=== PATIENT | female | born 1960 | race American Indian/Alaskan Native ===

== ENCOUNTER 2020-09-17 10:35 | Observation (INO) | payer MEDICAID ==
[2020-09-17] MEDS ORDERED: ASPIRIN 325 MG TAB ONE (10:42)
[2020-09-17] MEDS ORDERED: ASPIRIN 325 MG TAB PO ONE (10:47)
--- NOTE | 2020-09-17 11:57 | XRay Report ---
CHEST 2 VIEWS 1101 INDICATION / CLINICAL INFORMATION: CP/SOB COMPARISON: None available. FINDINGS: SUPPORT DEVICES: None. HEART / MEDIASTINUM: Mild cardiomegaly LUNGS / PLEURA: Pulmonary vascularity appears within normal limits. No definite pleural effusions are seen. Diffuse bilateral moderately prominent increased interstitial markings are seen. These are not ed throughout both lung mora though are most noticeable in the right base and particularly the righ t middle lobe. Probably these markings are predominantly chronic based on appearance though certainly could include interstitial edema/infiltrate and I am concerned there could be superimposed focal pne umonitis in the right middle lobe though without dense consolidation. No pneumothorax. ADDITIONAL FINDINGS: No significant additional findings. IMPRESSION: Diffuse interstitial markings as above, more concentrated in the right middle lobe as dis cussed. Chronicity is unclear but acute pneumonitis as well as mild edema are possible. In the absenc e of prior studies for comparison, follow-up is suggested as is clinical correlation. Signer Name: Poli Enciso MD Signed: 09/17/2020 11:53 AM Workstation Name: [id number]
[2020-09-17 13:09] LABS: Basophils % (Auto) 0.6 % (0.0-1.8); Eosinophils # (Auto) 0.1 K/mm3 (0.0-0.4); Eosinophils % (Auto) 1.8 % (0.0-4.3); Hematocrit 41.2 % (30.3-42.9); Lymphocytes # (Auto) 2.3 K/mm3 (1.2-5.4); Lymphocytes % (Auto) 39.4 % (13.4-35.0); Mean Corpuscular HGB Conc 34 % (30-34); Mean Corpuscular Volume 96 fl (79-97); Monocytes # (Auto) 0.5 K/mm3 (0.0-0.8); Monocytes % (Auto) 8.2 % (0.0-7.3); Platelet Count 267 K/mm3 (140-440); Red Blood Count 4.29 M/mm3 (3.65-5.03); Red Cell Distribution Width 13.1 % (13.2-15.2)
[2020-09-17] MEDS ORDERED: methylPREDNISolone Sod Succinate 125 MG/2 ML INJ IV ONE (13:23)
[2020-09-17] MEDS ORDERED: IPRATROPIUM/ALBUTEROL SULFATE 3 ML AMPUL.NEB IH ONE (13:23)
[2020-09-17 13:42] LABS: Alanine Aminotransferase 18 units/L (7-56); Albumin 3.9 g/dL (3.9-5); BUN/Creatinine Ratio 14; Blood Urea Nitrogen 14 mg/dL (7-17); Calcium 8.7 mg/dL (8.4-10.2); Hemolysis Index 24
[2020-09-17 13:50] LABS: INR 0.95 (0.87-1.13)
--- NOTE | 2020-09-17 13:56 | Emergency Department Report ---
ED Chest Pain HPI - General Chief Complaint: Chest Pain Stated Complaint: CHEST PAIN/ SHORTNESS OF BREATH Time Seen by Provider: 09/17/20 12:45 Source: patient Mode of arrival: Wheelchair Limitations: No Limitations - History of Present Illness Initial Comments: This is a 60-year-old female presents to the emergency department with a complaint of a 1 day history of some generalized chest discomfort and shortness of breath. It is associated with some wheezing and a mixed dry and productive cough. The patient's chest discomfort increases with her respirations. She denies any lower extremity swelling, fever, back pain, abdominal pain. She has a past medical history of COPD for which she is supposed to be on home O2 but does not have the equipment. She has a history of CHF. 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 No recent travel or sick contacts at home. She is a tobacco smoker but denies any illicit drug use. - Related Data Previous Rx's Medication Instructions Recorded Last Taken Type ALBUTEROL NEB's [Proventil 0.083% 2.5 mg IH Q4HRT PRN #30 nebu 09/18/20 Unknown Rx NEBS] Albuterol Mdi (or & Nicu Only) 2 puff IH QID PRN #8.5 gram 09/18/20 Unknown Rx [ProAir HFA Inhaler] Aspirin EC [Halfprin EC] 81 mg PO QDAY #30 tablet. 09/18/20 Unknown Rx Folic Acid [Folvite] 1 mg PO QDAY #30 tablet 09/18/20 Unknown Rx Pravastatin Sodium [Pravastatin] 10 mg PO QHS #30 tablet 09/18/20 Unknown Rx carvediloL [Coreg] 6.25 mg PO BID #60 tablet 09/18/20 Unknown Rx levoFLOXacin [Levaquin TAB] 750 mg PO Q24HR #5 tablet 09/18/20 Unknown Rx lisinopriL [Zestril TAB] 2.5 mg PO QDAY #30 tablet 09/18/20 Unknown Rx Allergies Allergy/AdvReac Type Severity Reaction Status Date / Time No Known Allergies Allergy Unverified 09/17/20 10:37 Heart Score - HEART Score History: Slightly suspicious EKG: Non-specific Age: 45-65 Risk factors: 1-2 risk factors Troponin: < normal limit HEART Score: 3 - EKG Read Time Time EKG Completed: 10:44 EKG Read Time: 10:45 ED Review of Systems ROS: Stated complaint: CHEST PAIN/ SHORTNESS OF BREATH Other details as noted in HPI Comment: All other systems reviewed and negative Constitutional: denies: chills, fever Eyes: denies: eye pain, vision change ENT: denies: ear pain, throat pain Respiratory: cough, shortness of breath, wheezing Cardiovascular: chest pain. denies: edema Gastrointestinal: denies: abdominal pain, vomiting Genitourinary: denies: dysuria, discharge Musculoskeletal: denies: back pain, arthralgia Skin: denies: rash, lesions Neurological: denies: headache, weakness ED Past Medical Hx - Past Medical History Hx Congestive Heart Failure: Yes Hx COPD: Yes Additional medical history: RAPID HEART BEAT/ EMPHYSEMA - Surgical History Additional Surgical History: RIGHT BREST/ C SECTION - Social History Smoking Status: Current Some Day Smoker Substance Use Type: Alcohol - Medications Home Medications: Home Medications Medication Instructions Recorded Confirmed Last Taken Type ALBUTEROL NEB's [Proventil 0.083% 2.5 mg IH Q4HRT PRN #30 nebu 09/18/20 Unknown Rx NEBS] Albuterol Mdi (or & Nicu Only) 2 puff IH QID PRN #8.5 gram 09/18/20 Unknown Rx [ProAir HFA Inhaler] Aspirin EC [Halfprin EC] 81 mg PO QDAY #30 tablet. 09/18/20 Unknown Rx Folic Acid [Folvite] 1 mg PO QDAY #30 tablet 09/18/20 Unknown Rx Pravastatin Sodium [Pravastatin] 10 mg PO QHS #30 tablet 09/18/20 Unknown Rx carvediloL [Coreg] 6.25 mg PO BID #60 tablet 09/18/20 Unknown Rx levoFLOXacin [Levaquin TAB] 750 mg PO Q24HR #5 tablet 09/18/20 Unknown Rx lisinopriL [Zestril TAB] 2.5 mg PO QDAY #30 tablet 09/18/20 Unknown Rx ED Physical Exam - General Limitations: No Limitations - Other Other exam information: GENERAL: The patient is well-developed well-nourished. HENT: Normocephalic. Atraumatic. Patient has moist mucous membranes. EYES: Extraocular motions are intact. NECK: Supple. Trachea is midline. CHEST/LUNGS: Coarse breath sounds throughout the chest. A productive sounding cough is heard. Tachypnea but no accessory muscle use. Chest pain is not reproducible to palpation of the chest wall, no crepitus or deformity. HEART/CARDIOVASCULAR: Regular. There is no tachycardia. There is no murmur. ABDOMEN: Abdomen is soft, nontender. Patient has normal bowel sounds. There is no abdominal distention. SKIN: Skin is warm and dry. NEURO: The patient is awake, alert, and oriented. The patient is cooperative. The patient has no focal neurologic deficits. Normal speech. MUSCULOSKELETAL: There is no tenderness or deformity. There is no limitation range of motion. ED Course Vital Signs 09/17/20 09/17/20 09/17/20 10:49 12:57 13:00 Temperature 98.1 F Pulse Rate 86 82 Respiratory 20 16 Rate Blood Pressure 136/63 136/77 O2 Sat by Pulse 95 98 97 Oximetry 09/17/20 09/17/20 09/17/20 13:16 13:30 13:46 Temperature Pulse Rate 100 H 82 82 Respiratory 16 16 13 Rate Blood Pressure 129/72 108/62 131/79 O2 Sat by Pulse 95 97 97 Oximetry 09/17/20 09/17/20 09/17/20 14:00 14:16 14:30 Temperature Pulse Rate 89 102 H 89 Respiratory 14 18 16 Rate Blood Pressure 128/80 126/82 124/81 O2 Sat by Pulse 100 98 97 Oximetry 09/17/20 09/17/20 09/17/20 14:46 15:00 15:16 Temperature Pulse Rate 94 H 96 H 65 Respiratory 18 14 19 Rate Blood Pressure 127/84 135/92 139/92 O2 Sat by Pulse 97 98 95 Oximetry 09/17/20 09/17/20 09/17/20 15:30 16:18 16:30 Temperature Pulse Rate 101 H 105 H Respiratory 24 18 Rate Blood Pressure 135/92 135/92 135/92 O2 Sat by Pulse 96 97 98 Oximetry 09/17/20 09/17/20 09/17/20 16:46 18:35 18:46 Temperature Pulse Rate 105 H 94 H Respiratory 18 21 17 Rate Blood Pressure 140/94 138/89 131/82 O2 Sat by Pulse 94 99 98 Oximetry 09/17/20 09/17/20 09/17/20 19:00 19:16 19:30 Temperature Pulse Rate 85 89 80 Respiratory 16 14 16 Rate Blood Pressure 145/80 142/78 137/83 O2 Sat by Pulse 98 97 99 Oximetry 09/17/20 09/17/20 09/17/20 19:45 19:46 20:00 Temperature Pulse Rate 105 H 105 H Respiratory 20 21 20 Rate Blood Pressure 152/90 152/90 O2 Sat by Pulse 97 98 86 Oximetry 09/17/20 09/17/20 09/17/20 20:16 20:30 20:46 Temperature Pulse Rate 102 H 100 H 105 H Respiratory 18 16 23 Rate Blood Pressure 164/92 169/117 169/97 O2 Sat by Pulse 98 97 98 Oximetry 09/17/20 09/17/20 21:00 21:16 Temperature Pulse Rate 107 H 78 Respiratory 17 25 H Rate Blood Pressure 152/89 147/95 O2 Sat by Pulse 96 99 Oximetry CHARLES score - Charles Score Age > 65: (0) No Aspirin use within the Past 7 Days: (0) No 3 or more CAD Risk Factors: (0) No 2 or more Angina events in past 24 hrs: (1) Yes Known CAD with more than 50% Stenosis: (0) No Elevated Cardiac Markers: (0) No ST Deviation Greater than 0.5mm: (0) No CHARLES Score: 1 ED Medical Decision Making - Lab Data Result diagrams: 09/17/20 12:33 09/18/20 07:59 Lab Results 09/17/20 09/17/20 09/17/20 Range/Units 12:33 12:33 13:00 WBC 5.9 (4.5-11.0) K/mm3 RBC 4.29 (3.65-5.03) M/mm3 Hgb 14.0 (10.1-14.3) gm/dl Hct 41.2 (30.3-42.9) % MCV 96 (79-97) fl MCH 33 H (28-32) pg MCHC 34 (30-34) % RDW 13.1 L (13.2-15.2) % Plt Count 267 (140-440) K/mm3 Lymph % (Auto) 39.4 H (13.4-35.0) % Whiteside % (Auto) 8.2 H (0.0-7.3) % Eos % (Auto) 1.8 (0.0-4.3) % Baso % (Auto) 0.6 (0.0-1.8) % Lymph # (Auto) 2.3 (1.2-5.4) K/mm3 Whiteside # (Auto) 0.5 (0.0-0.8) K/mm3 Eos # (Auto) 0.1 (0.0-0.4) K/mm3 Baso # (Auto) 0.0 (0.0-0.1) K/mm3 Seg Neutrophils % 50.0 (40.0-70.0) % Seg Neutrophils # 2.9 (1.8-7.7) K/mm3 PT (12.2-14.9) Sec. INR (0.87-1.13) D-Dimer (0-234) ng/mlDDU Sodium 139 (137-145) mmol/L Potassium 3.8 (3.6-5.0) mmol/L Chloride 102.1 (98-107) mmol/L Carbon Dioxide 26 (22-30) mmol/L Anion Gap 15 mmol/L BUN 14 (7-17) mg/dL Creatinine 1.0 (0.6-1.2) mg/dL Estimated GFR 57 ml/min BUN/Creatinine Ratio 14 % Glucose 90 (65-100) mg/dL Calcium 8.7 (8.4-10.2) mg/dL Total Bilirubin 0.30 (0.1-1.2) mg/dL AST 24 (5-40) units/L ALT 18 (7-56) units/L Alkaline Phosphatase 77 (35-129) units/L Troponin T < 0.010 < 0.010 (0.00-0.029) ng/mL NT-Pro-B Natriuret Pep (0-900) pg/mL Total Protein 6.9 (6.3-8.2) g/dL Albumin 3.9 (3.9-5) g/dL Albumin/Globulin Ratio 1.3 % 09/17/20 09/17/20 09/17/20 Range/Units 13:00 13:00 13:00 WBC (4.5-11.0) K/mm3 RBC (3.65-5.03) M/mm3 Hgb (10.1-14.3) gm/dl Hct (30.3-42.9) % MCV (79-97) fl MCH (28-32) pg MCHC (30-34) % RDW (13.2-15.2) % Plt Count (140-440) K/mm3 Lymph % (Auto) (13.4-35.0) % Whiteside % (Auto) (0.0-7.3) % Eos % (Auto) (0.0-4.3) % Baso % (Auto) (0.0-1.8) % Lymph # (Auto) (1.2-5.4) K/mm3 Whiteside # (Auto) (0.0-0.8) K/mm3 Eos # (Auto) (0.0-0.4) K/mm3 Baso # (Auto) (0.0-0.1) K/mm3 Seg Neutrophils % (40.0-70.0) % Seg Neutrophils # (1.8-7.7) K/mm3 PT 13.3 (12.2-14.9) Sec. INR 0.95 (0.87-1.13) D-Dimer 256.97 H (0-234) ng/mlDDU Sodium (137-145) mmol/L Potassium (3.6-5.0) mmol/L Chloride (98-107) mmol/L Carbon Dioxide (22-30) mmol/L Anion Gap mmol/L BUN (7-17) mg/dL Creatinine (0.6-1.2) mg/dL Estimated GFR ml/min BUN/Creatinine Ratio % Glucose (65-100) mg/dL Calcium (8.4-10.2) mg/dL Total Bilirubin (0.1-1.2) mg/dL AST (5-40) units/L ALT (7-56) units/L Alkaline Phosphatase (35-129) units/L Troponin T (0.00-0.029) ng/mL NT-Pro-B Natriuret Pep 3162 H (0-900) pg/mL Total Protein (6.3-8.2) g/dL Albumin (3.9-5) g/dL Albumin/Globulin Ratio % 09/17/20 Range/Units 16:40 WBC (4.5-11.0) K/mm3 RBC (3.65-5.03) M/mm3 Hgb (10.1-14.3) gm/dl Hct (30.3-42.9) % MCV (79-97) fl MCH (28-32) pg MCHC (30-34) % RDW (13.2-15.2) % Plt Count (140-440) K/mm3 Lymph % (Auto) (13.4-35.0) % Whiteside % (Auto) (0.0-7.3) % Eos % (Auto) (0.0-4.3) % Baso % (Auto) (0.0-1.8) % Lymph # (Auto) (1.2-5.4) K/mm3 Whiteside # (Auto) (0.0-0.8) K/mm3 Eos # (Auto) (0.0-0.4) K/mm3 Baso # (Auto) (0.0-0.1) K/mm3 Seg Neutrophils % (40.0-70.0) % Seg Neutrophils # (1.8-7.7) K/mm3 PT (12.2-14.9) Sec. INR (0.87-1.13) D-Dimer (0-234) ng/mlDDU Sodium (137-145) mmol/L Potassium (3.6-5.0) mmol/L Chloride (98-107) mmol/L Carbon Dioxide (22-30) mmol/L Anion Gap mmol/L BUN (7-17) mg/dL Creatinine (0.6-1.2) mg/dL Estimated GFR ml/min BUN/Creatinine Ratio % Glucose (65-100) mg/dL Calcium (8.4-10.2) mg/dL Total Bilirubin (0.1-1.2) mg/dL AST (5-40) units/L ALT (7-56) units/L Alkaline Phosphatase (35-129) units/L Troponin T < 0.010 (0.00-0.029) ng/mL NT-Pro-B Natriuret Pep (0-900) pg/mL Total Protein (6.3-8.2) g/dL Albumin (3.9-5) g/dL Albumin/Globulin Ratio % - EKG Data -: EKG Interpreted by Ne EKG shows normal: sinus rhythm, axis, intervals, QRS complexes (LVH), ST-T waves (Nonspecific ST T waves) Rate: normal - EKG Data When compared to previous EKG there are: previous EKG unavailable Interpretation: other (Sinus rhythm, normal axis, normal intervals, LVH, nonspecific ST T waves. No ST elevation SD.) - Radiology Data Radiology results: report reviewed CHEST 2 VIEWS 1101 INDICATION / CLINICAL INFORMATION: CP/SOB COMPARISON: None available. FINDINGS: SUPPORT DEVICES: None. HEART / MEDIASTINUM: Mild cardiomegaly LUNGS / PLEURA: Pulmonary vascularity appears within normal limits. No definite pleural effusions are seen. Diffuse bilateral moderately prominent increased interstitial markings are seen. These are noted throughout both lung mora though are most noticeable in the right base and particularly the right middle lobe. Probably these markings are predominantly chronic based on appearance though certainly could include interstitial edema/infiltrate and I am concerned there could be superimposed focal pneumonitis in the right middle lobe though without dense consolidation. No pneumothorax. ADDITIONAL FINDINGS: No significant additional findings. IMPRESSION: Diffuse interstitial markings as above, more concentrated in the right middle lobe as discussed. Chronicity is unclear but acute pneumonitis as well as mild edema are possible. In the absence of prior studies for comparison, follow-up is suggested as is clinical correlation. CTA CHEST WITH CONTRAST INDICATION / CLINICAL INFORMATION: CP, SOB, Elevated dimer 100 ml omni 350. TECHNIQUE: Axial CT images were obtained through the chest after injection of 100 cc of Omnipaque 350 IV contrast. 3 plane MIP and/or 3D reconstructions were produced. All CT scans at this location are performed using CT dose reduction for ALARA by means of automated exposure control. COM PARISON: None available. FINDINGS: PULMONARY ARTERIES: No pulmonary emboli. THORACIC AORTA: Mild atherosclerotic calcification without acute abnormality. HEART: Mildly enlarged CORONARY ARTERY CALCIFICATION: None. MEDIASTINUM / STACI: No significant abnormality. PLEURA: There is a small right pleural effusion No pneumothorax. LUNGS: There are scattered bullous disease. There is thickening of interlobular septa. There is peripheral interstitial disease bilaterally. There are some very small nodules in the periphery of the upper lobes measuring up to 4 mm. ADDITIONAL FINDINGS: None. UPPER ABDOMEN: There are small hypodensities in the liver characteristic of cysts. SKELETAL STRUCTURES: No significant osseous abnormality. IMPRESSION: 1. No CT evidence for pulmonary embolism. 2. There are bilateral interstitial opacities may be chronic or may represent edema. The possibility of an interstitial pneumonitis as well as infectious process is considered in the differential. There are multiple very small nodular densities in the periphery of the lungs measuring up to 4 mm. - Medical Decision Making This patient presents to the emergency department with complaint of some generalized chest pain that worsens with deep respirations. She has both wheezing and coarse breath sounds heard. There is some mild tachypnea but no accessory muscle use. EKG does not have any morphology consistent with ST elevation myocardial infarction. Chest x-ray shows some interstitial markings that appear, to me, to be consistent with some interstitial edema. No widened mediastinum. No obvious pneumonia. Patient was given breathing treatments, Solu-Medrol, Lasix. Patient's labs were concerning for an elevated proBNP of about 3000, and a slightly elevated and equivocal D-dimer level. The patient had a CT angiography of the chest that once again showed these interstitial markings that could be edema versus some pneumonitis. Patient continues to have the symptoms despite the aforementioned treatment. She has a heart score of 3. Patient will be admitted to the hospital for further evaluation and treatment was accepted for admission by the hospitalist, Dr. Dobbs. Critical Care Time: No Critical care attestation.: If time is entered above; I have spent that time in minutes in the direct care of this critically ill patient, excluding procedure time. ED Disposition Clinical Impression: Acute chest pain, Tobacco use disorder CHF exacerbation Qualifiers: Heart failure type: systolic Qualified Code(s): I50.23 - Acute on chronic systolic (congestive) heart failure COPD (chronic obstructive pulmonary disease) Qualifiers: COPD type: chronic bronchitis Chronic bronchitis type: unspecified Qualified Code(s): J42 - Unspecified chronic bronchitis Disposition: OP ADMIT IP TO THIS HOSP Is pt being admited?: Yes Condition: Fair Time of Disposition: 16:58
--- NOTE | 2020-09-17 16:36 | Cat Scan Report ---
CTA CHEST WITH CONTRAST INDICATION / CLINICAL INFORMATION: CP, SOB, Elevated dimer 100 ml omni 350. TECHNIQUE: Axial CT images were obtained through the chest after injection of 100 cc of Omnipaque 350 IV contrast. 3 plane MIP and/or 3D reconstructions were produced. All CT scans at this location are performed using CT dose reduction for ALARA by means of automated exposure control. COMPARISON: None available. FINDINGS: PULMONARY ARTERIES: No pulmonary emboli. THORACIC AORTA: Mild atherosclerotic calcification without acute abnormality. HEART: Mildly enlarged CORONARY ARTERY CALCIFICATION: None. MEDIASTINUM / STACI: No significant abnormality. PLEURA: There is a small right pleural effusion No pneumothorax. LUNGS: There are scattered bullous disease. There is thickening of interlobular septa. There is perip heral interstitial disease bilaterally. There are some very small nodules in the periphery of the upp er lobes measuring up to 4 mm. ADDITIONAL FINDINGS: None. UPPER ABDOMEN: There are small hypodensities in the liver characteristic of cysts. SKELETAL STRUCTURES: No significant osseous abnormality. IMPRESSION: 1. No CT evidence for pulmonary embolism. 2. There are bilateral interstitial opacities may be chronic or may represent edema. The possibility of an interstitial pneumonitis as well as infectious process is considered in the differential. There are multiple very small nodular densities in the periphery of the lungs measuring up to 4 mm. Multiple incidental pulmonary nodule(s) in the upper lobes measuring 4 mm with solid characteristics. Recommendation according to Fleischner Society 2017 Guidelines: Low Risk Patient: No routine follow- up; High Risk Patient: Optional CT at 12 months. Signer Name: Pio Cedillo MD Signed: 09/17/2020 4:32 PM Workstation Name: [id number]
[2020-09-17] MEDS ORDERED: FUROSEMIDE 20 MG/2 ML INJ IV ONE (16:38)
--- NOTE | 2020-09-17 16:51 | History and Physical Report ---
History of Present Illness Chief complaint: I cant breathe History of present illness: 60 YO Female with Nicotine Dependence, CHF, Medication Noncompliance, COPD, ETOH Dependence, Chronic Respiratory Failure noncompliant with home oxygen presents to ED for evaluation. Patient reports "I cannot breathe". Patient states that she has experienced breath, chest discomfort, orthopnea, paroxysmal nocturnal dyspnea, decreased exercise tolerance, dyspnea on exertion, and dyspnea at rest, chest discomfort over the past 1 week with worsening symptoms over the past 1 day. Patient transported to [facility] via private vehicle for further care and evaluation of the aforementioned symptoms. The patient was seen and evaluated in the emergency department. All lab and imaging studies reviewed. Patient with chest x-ray and found to have pulmonary vascular congestion as well as clinical symptoms consistent with CHF decompensation. Patient placed in observation status and admitted to telemetry and initiated on CHF protocol. Patient denies fever, chills, chest pain, palpitation, productive cough, skin rash, recent ill contacts, known exposure to COVID-19. No prior admission for review. All medication listed at time of admission has been reconciled. Cardiology team consulted in ED. Past History Past Medical History: heart failure, hypertension, other (See HPI) Past Surgical History: , Other (Right breast surgery) Social history: single, smoking. denies: alcohol abuse, prescription drug abuse Family history: diabetes, hypertension Medications and Allergies Allergies Allergy/AdvReac Type Severity Reaction Status Date / Time No Known Allergies Allergy Unverified 09/17/20 10:37 Review of Systems Constitutional: no weight loss, no weight gain, no fever, no chills Ears, nose, mouth and throat: no ear pain, no ear discharge, no tinnitis, no nose pain, no nasal congestion, no nasal discharge Breasts: no change in shape, no swelling, no mass Cardiovascular: orthopnea, edema, shortness of breath, dyspnea on exertion, paro xysmal nocturnal dyspnea, leg edema, decreased exercise tolerance, no chest pain, no palpitations, no rapid/irregular heart beat Respiratory: no cough, no cough with sputum, no hemoptysis Gastrointestinal: no abdominal pain, no nausea, no vomiting, no diarrhea Genitourinary Female: no pelvic pain, no flank pain, no dysuria, no urinary frequency, no urgency Rectal: no pain, no incontinence, no bleeding Musculoskeletal: no neck stiffness, no neck pain, no shooting arm pain, no arm numbness/tingling, no low back pain Integumentary: no rash, no pruritis, no redness, no sores, no wounds Neurological: no transient paralysis, no paralysis, no weakness, no parathesias, no numbness, no tingling, no seizures Psychiatric: no anxiety, no memory loss, no change in sleep habits, no sleep disturbances, no insomnia, no hypersomnia, no change in appetite, no change in libido Endocrine: no cold intolerance, no heat intolerance, no polyphagia, no polydipsia, no polyuria, no nocturia, no excessive sweating Hematologic/Lymphatic: no easy bruising, no easy bleeding, no lymphadenopathy Exam - Constitutional Vitals: Temp Pulse Resp BP Pulse Ox 98.1 F 82 13 131/79 97 09/17/20 10:49 09/17/20 13:46 09/17/20 13:46 09/17/20 13:46 09/17/20 13:46 General appearance: Present: mild distress - EENT Eyes: Present: PERRL ENT: hearing intact, clear oral mucosa - Neck Neck: Present: supple, normal ROM - Respiratory Respiratory effort: normal Respiratory: bilateral: diminished, rales - Cardiovascular Heart Sounds: Present: S1 & S2. Absent: rub, click - Extremities Extremities: pulses symmetrical Extremity abnormal: edema Peripheral Pulses: within normal limits - Abdominal General gastrointestinal: Present: soft, non-tender, non-distended, normal bowel sounds Female genitourinary: Present: normal - Integumentary Integumentary: Present: clear, warm, dry - Musculoskeletal Musculoskeletal: gait normal, strength equal bilaterally - Psychiatric Psychiatric: appropriate mood/affect, intact judgment & insight - Neurologic Neurologic: CNII-XII intact, moves all extremities HEART Score - HEART Score EKG: Non-specific Age: 45-65 Risk factors: 1-2 risk factors Troponin: Troponin T < 0.010 ng/mL (0.00-0.029) 09/17/20 13:00 Troponin: < normal limit Results - Labs CBC & Chem 7: 09/17/20 12:33 09/17/20 12:33 Labs: Abnormal lab results 09/17/20 09/17/20 09/17/20 Range/Units 12:33 13:00 13:00 MCH 33 H (28-32) pg RDW 13.1 L (13.2-15.2) % Lymph % (Auto) 39.4 H (13.4-35.0) % [place] % (Auto) 8.2 H (0.0-7.3) % D-Dimer 256.97 H (0-234) ng/mlDDU NT-Pro-B Natriuret Pep 3162 H (0-900) pg/mL Assessment and Plan - Patient Problems (1) CHF exacerbation Current Visit: Yes Status: Acute Qualifiers: Heart failure type: systolic Qualified Code(s): I50.23 - Acute on chronic systolic (congestive) heart failure Plan to address problem: CHF protocol: Strict I/O, monitor urine output every shift, daily weight, aft erload reduction, blood pressure control, echocardiogram ordered and pending at time of admission, cardiology team consulted. (2) Chronic respiratory failure Current Visit: Yes Status: Acute Plan to address problem: Patient noncompliant with home oxygen. Home oxygen evaluation, supportive care. (3) Nicotine dependence Current Visit: Yes Status: Acute Qualifiers: Nicotine product type: cigarettes Substance use status: in withdrawal Qualified Code(s): F17.213 - Nicotine dependence, cigarettes, with withdrawal Plan to address problem: smoking cessation counseling, supportive care, behavior change counseling, +15 minutes (4) Noncompliance Current Visit: Yes Status: Acute Plan to address problem: Patient counseled regarding medication noncompliance as well as noncompliance with home oxygen. Patient knowledges understanding instructions and acknowledges that she will attempt to be more compliant in the future (5) Alcohol dependence Current Visit: Yes Status: Acute Plan to address problem: Thiamine, folic acid, multivitamin daily, [facility] protocol. (6) COPD (chronic obstructive pulmonary disease) Current Visit: Yes Status: Acute Qualifiers: COPD type: chronic bronchitis Plan to address problem: Supplemental oxygen, pulse oximetry, nebulizer therapy, supportive care. (7) DVT prophylaxis Current Visit: Yes Status: Acute Plan to address problem: SCD to bilateral lower extremities while in bed, patient is ambulatory.
[2020-09-17] MEDS ORDERED: oxyCODONE /ACETAMINOPHEN 5-325MG TAB PO PRN (16:52)
[2020-09-17] MEDS ORDERED: HYDROmorphone 1 MG/1 ML INJ IV PRN (16:52)
[2020-09-17] MEDS ORDERED: ACETAMINOPHEN 325 MG TAB PO PRN (16:52)
[2020-09-17] MEDS ORDERED: ONDANSETRON 4 MG/2 ML INJ IV PRN (16:52)
[2020-09-17] MEDS: FUROSEMIDE 20 MG/2 ML INJ IV SCH (17:37)
[2020-09-17] MEDS ORDERED: LORazepam 2 MG/ML VIAL IV PRN (17:43)
[2020-09-17] MEDS ORDERED: THIAMINE 100 MG TAB PO ONE (17:56)
[2020-09-18] MEDS: ALBUTEROL 2.5 MG/3 ML NEBU IH PRN ×2 (05:28→14:15)
[2020-09-18] MEDS: FUROSEMIDE 20 MG/2 ML INJ IV SCH (07:09)
[2020-09-18 09:55] LABS: BUN/Creatinine Ratio 21; Blood Urea Nitrogen 17 mg/dL (7-17); Calcium 9.7 mg/dL (8.4-10.2); Hemolysis Index 0
[2020-09-18] MEDS ORDERED: FOLIC ACID 1 MG TAB PO SCH (10:00)
[2020-09-18] MEDS ORDERED: MULTIVITAMINS ,THERAPEUTIC TAB PO SCH (10:00)
--- NOTE | 2020-09-18 10:35 | Electrocardiograph Report ---
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
--- NOTE | 2020-09-18 12:10 | Consultation ---
History of Present Illness Consult date: 09/18/20 Requesting physician: ERNIE THRASHER Consult reason: congestive heart failure History of present illness: This patient is a 60-year-old female with a significant history of cardiomyopathy, heart failure reduced ejection fraction, palpitations, hypertension, hyperlipidemia, COPD emphysema, tobacco use, heart murmur. She is previously unknown to our practice and has been followed by cardiology through [facility]. Patient presents to [facility] ER with chief complaint of shortness of breath, chest pain x3 days. Patient normally has no limitations on ADLs but over the last 3 days is having significant exertional dyspnea. Patient has previously been prescribed LifeVest approximately 5 years ago which she wore for 1 year before discontinuing AGAINST MEDICAL ADVICE. Patient has not followed up with recommended electrophysiology to discuss ICD. She had cardiac stress test 3 years prior which she reports as normal. She is on home medications Coreg, flecainide, lisinopril and until recently hydrochlorothiazide which was discontinued due to hypokalemia. Tobacco use is reported with his 2 packs/day x 40 years for estimated 80 pack years, EtOH 2 drinks per night, no recreational drugs. At time of interview patient is having mild chest discomfort 3 out of 10 achy with mild shortness of breath. She denies any weakness, dizziness, abdominal pain, N/V/D, recent illness or known exposures. Patient denies any previous history of coronary artery disease, CVA, DVT, PE. In the past she has been on home O2 for COPD but has been discontinued for several years due to economic barriers. Patient also states she has recently [place] to this area and would like to be reestablished with cardiology. Past History Past Medical History: heart failure, hypertension, other (See HPI) Past Surgical History: , Other (Right breast surgery) Social history: single, smoking. denies: alcohol abuse, prescription drug abuse Family history: diabetes, hypertension Medications and Allergies Allergies Allergy/AdvReac Type Severity Reaction Status Date / Time No Known Allergies Allergy Unverified 09/17/20 10:37 Active Meds: Active Medications Acetaminophen (Acetaminophen 325 Mg Tab) 650 mg PO Q4H PRN PRN Reason: Pain MILD(1-3)/Fever >100.5/DUFFY Albuterol (Albuterol 2.5 Mg/3 Ml Nebu) 2.5 mg IH Q4HRT PRN PRN Reason: Shortness Of Breath Last Admin: 09/18/20 05:28 Dose: 2.5 mg Documented by: Folic Acid (Folic Acid 1 Mg Tab) 1 mg PO QDAY [facility] Last Admin: 09/18/20 09:58 Dose: 1 mg Documented by: Furosemide (Furosemide 20 Mg/2 Ml Inj) 20 mg IV BID@0600,1800 [facility] Last Admin: 09/18/20 07:09 Dose: 20 mg Documented by: Hydromorphone HCl (Hydromorphone 1 Mg/1 Ml Inj) 0.5 mg IV Q12H PRN PRN Reason: Pain , Severe (7-10) Lorazepam (Lorazepam 2 Mg/Ml Vial) 2 mg IV Q1HR PRN PRN Reason: CIWA-Ar 8-15 Multivitamins (Multivitamins ,Therapeutic Tab) 1 each PO QDAY [facility] Last Admin: 09/18/20 09:58 Dose: 1 each Documented by: Ondansetron HCl (Ondansetron 4 Mg/2 Ml Inj) 4 mg IV Q8H PRN PRN Reason: Nausea And Vomiting Oxycodone/Acetaminophen (Oxycodone /Acetaminophen 5-325mg Tab) 1 tab PO Q8H PRN PRN Reason: Pain, Moderate (4-6) Last Admin: 09/18/20 07:09 Dose: 1 tab Documented by: Sodium Chloride (Sodium Chloride 0.9% 10 Ml Flush Syringe) 10 ml IV BID [facility] Last Admin: 09/18/20 09:58 Dose: 10 ml Documented by: Sodium Chloride (Sodium Chloride 0.9% 10 Ml Flush Syringe) 10 ml IV PRN PRN PRN Reason: LINE FLUSH Review of Systems Constitutional: no weight loss, no weight gain, no fever, no chills, no sweats, no night sweats Ears, nose, mouth and throat: no ear pain, no ear discharge, no nose pain, no nasal congestion, no nasal discharge Cardiovascular: chest pain, shortness of breath, dyspnea on exertion, decreased exercise tolerance, no orthopnea, no palpitations, no rapid/irregular heart beat, no edema, no syncope, no lightheadedness, no paroxysmal nocturnal dyspnea, no claudication, no high blood pressure, no leg edema Respiratory: cough, dyspnea on exertion, no cough with sputum, no hemoptysis, no shortness of breath Gastrointestinal: no abdominal pain, no nausea, no vomiting, no diarrhea Genitourinary Female: no flank pain Musculoskeletal: no neck stiffness, no neck pain, no shooting arm pain, no arm numbness/tingling, no low back pain, no shooting leg pain Integumentary: no rash, no pruritis, no redness, no sores, no wounds, no jaundice Neurological: no head injury, no paralysis, no weakness, no parathesias, no numbness, no tingling, no seizures, no syncope Psychiatric: no anxiety Endocrine: no cold intolerance, no heat intolerance Hematologic/Lymphatic: no easy bruising, no easy bleeding Allergic/Immunologic: no urticaria Physical Examination Last Vital Signs Temp 97.8 F 09/18/20 08:21 Pulse 89 09/18/20 08:21 Resp 18 09/18/20 08:21 BP 130/76 09/18/20 08:21 Pulse Ox 94 09/18/20 08:21 General appearance: no acute distress HEENT: Positive: PERRL, Normocephaly, Mucus Membranes Moist Neck: Positive: neck supple, trachea midline Cardiac: Positive: Reg Rate and Rhythm, S1/S2 Lungs: Positive: Decreased Breath Sounds Neuro: Positive: Grossly Intact Abdomen: Positive: Unremarkable, Soft Skin: Negative: Rash, Wound Extremities: Present: upper extr. pulses, lower extr. pulses. Absent: edema Results 09/17/20 12:33 09/18/20 07:59 Cardiac Enzymes 09/17/20 Range/Units 12:33 AST 24 (5-40) units/L Coagulation 09/17/20 Range/Units 13:00 PT 13.3 (12.2-14.9) Sec. INR 0.95 (0.87-1.13) CBC 09/17/20 Range/Units 12:33 WBC 5.9 (4.5-11.0) K/mm3 RBC 4.29 (3.65-5.03) M/mm3 Hgb 14.0 (10.1-14.3) gm/dl Hct 41.2 (30.3-42.9) % Plt Count 267 (140-440) K/mm3 Lymph # (Auto) 2.3 (1.2-5.4) K/mm3 [place] # (Auto) 0.5 (0.0-0.8) K/mm3 Eos # (Auto) 0.1 (0.0-0.4) K/mm3 Baso # (Auto) 0.0 (0.0-0.1) K/mm3 Comprehensive Metabolic Panel 09/17/20 09/18/20 Range/Units 12:33 07:59 Sodium 139 142 (137-145) mmol/L Potassium 3.8 4.3 (3.6-5.0) mmol/L Chloride 102.1 101.4 (98-107) mmol/L Carbon Dioxide 26 27 (22-30) mmol/L BUN 14 17 (7-17) mg/dL Creatinine 1.0 0.8 (0.6-1.2) mg/dL Glucose 90 115 H (65-100) mg/dL Calcium 8.7 9.7 (8.4-10.2) mg/dL AST 24 (5-40) units/L ALT 18 (7-56) units/L Alkaline Phosphatase 77 (35-129) units/L Total Protein 6.9 (6.3-8.2) g/dL Albumin 3.9 (3.9-5) g/dL - Imaging and Cardiology Echo: report reviewed (Echocardiogram (09/17/2020): LVEF is 30 to 35%. LV mildly dilated. LV SF moderately decreased. Moderate global hypokinesis of LV. Severe diastolic dysfunction restrictive filling. RV SF is normal. LA is mildly dilated. Mild MR. Mild TR.) EKG: report reviewed (Twelve-lead reviewed shows sinus rhythm with no acute ischemic changes), image reviewed EKG interpretations - Telemetry EKG Rhythm: Sinus Rhythm - EKG Sinus rhythms and dysrhythmias: sinus rhythm Assessment and Plan Acute respiratory distress secondary to pneumonia * CXR reviewed: Suspicious for right middle lobe pneumonia Chest pain * Chest pain is currently improved. Patient describes mild discomfort with some shortness of breath. Twelve-lead shows sinus rhythm with no acute ischemic c hanges. Troponins are negative x2. We will continue to trend CE's. * Patient reports negative stress test 3 years prior through [facility]. Will request records. Heart failure reduced ejection fraction in setting of restrictive cardiomyopathy * Echocardiogram (09/17/2020): LVEF is 30 to 35%. LV mildly dilated. LV SF moderately decreased. Moderate global hypokinesis of LV. Severe diastolic dysfunction restrictive filling. RV SF is normal. LA is mildly dilated. Mild MR. Mild TR. * Review of telemetry shows sinus rhythm with 10 beat episode of V. tach. Patient has previously been prescribed LifeVest but has abandoned treatment AGAINST MEDICAL ADVICE because she states people were making fun of her. She has not followed up with electrophysiology to discuss ICD. * GDMT: Initiate ASA 81, Coreg, lisinopril, statin. Tobacco use * Cessation encouraged Patient is in stable cardiac status. We will plan for outpatient ischemic eval. Patient may be discharged from cardiology standpoint on GDMT. Will follow Patient should follow-up with Dr Gary, [facility] dispatch specialist within 1 to 2 weeks of discharge (pending scheduling). #[phone] This patient was seen in conjunction with Dr Gary who agrees with this assessment plan of care - Patient Problems (1) Hypertension Current Visit: Yes Status: Acute (2) Hyperlipidemia Current Visit: Yes Status: Acute (3) Cardiomyopathy Current Visit: Yes Status: Acute (4) Heart failure with reduced ejection fraction Current Visit: Yes Status: Acute (5) Acute chest pain Current Visit: Yes Status: Acute (6) Alcohol dependence Current Visit: Yes Status: Acute (7) COPD (chronic obstructive pulmonary disease) Current Visit: Yes Status: Acute Qualifiers: COPD type: chronic bronchitis (8) Chronic respiratory failure Current Visit: Yes Status: Acute (9) DVT prophylaxis Current Visit: Yes Status: Acute (10) Noncompliance Current Visit: Yes Status: Acute (11) Tobacco use disorder Current Visit: Yes Status: Acute
[2020-09-18 12:46] VITALS: BP 129/76
--- NOTE | 2020-09-18 13:19 | Discharge Summary ---
Providers - Providers Date of Admission: 09/17/20 16:53 Date of discharge: 09/18/20 Attending physician: NAKIA AYON 09/17/20 16:52 Consult to Physician [CONS] Routine Comment: Consulting Provider: ANTONY FITZPATRICK Physician Instructions: Reason For Exam: chf Primary care physician: BUSINESS DEVELOPMENT MANAGER Hospitalization Condition: Fair Pertinent studies: Chest x-ray, CTA chest Hospital course: This patient is a 60-year-old female with a significant history of cardiomyopathy, heart failure reduced ejection fraction, palpitations, hypertension, hyperlipidemia, COPD emphysema, tobacco use, heart murmur presents to [facility] ER with chief complaint of shortness of breath, chest pain x3 days. Patient has previously been prescribed LifeVest approximately 5 years ago which she wore for 1 year before discontinuing AGAINST MEDICAL ADVICE. Patient has not followed up with recommended electrophysiology to discuss ICD. She had cardiac stress test 3 years prior which she reports as normal. Tobacco use is reported with 2 packs/day x 40 years for estimated 80 pack years, EtOH 2 drinks per night, no recreational drugs. Patient was evaluated in the ER, initial cardiac enzyme and EKG was unremarkable, chest x- ray showed diffuse interstitial infiltrates. CTA chest showed no PE but prominent interstitial markings. Patient was admitted and cardiology was consulted. Her chest pain improved, cardiology was consulted and recommended outpatient ischemic work-up. 2D echocardiogram obtained which showed EF 30 to 35%. Patient was euvolemic and also noted to have 10 beats of V. tach. Patient was initiated on aspirin Coreg lisinopril and statin. Patient was encouraged and counseled this time to follow-up outpatient with cardiology to discuss about ICD. Patient verbalized understanding and agreed to follow-up as outpatient. Patient was then discharged home in stable condition with outpatient follow-up. Patient will also encourage to quit smoking and avoid alcohol drinking. Her room air O2 saturation was greater than 94% and did not qualify for home O2 arrangement. Per Cardiology: Patient is in stable cardiac status. We will plan for outpatient ischemic eval. Patient may be discharged from cardiology standpoint on GDMT. Will follow Patient should follow-up with Dr Simon, [facility] mirror specialist within 1 to 2 weeks of discharge (pending scheduling). #[phone] This patient was seen in conjunction with Dr Simon who agrees with this assessment plan of care - Imaging and Cardiology Echo: report reviewed (Echocardiogram (09/17/2020): LVEF is 30 to 35%. LV mildly dilated. LV SF moderately decreased. Moderate global hypokinesis of LV. Sev ere diastolic dysfunction restrictive filling. RV SF is normal. LA is mildly dilated. Mild MR. Mild TR.) EKG: report reviewed (Twelve-lead reviewed shows sinus rhythm with no acute ischemic changes), image reviewed Disposition: [id number] HOME UNDER HOME HLTH Final Discharge Diagnosis (Prints w/discharge instructions): (1) Hypertension. Current Visit: Yes Status: Acute. (2) Hyperlipidemia. Current Visit: Yes Status: Acute. (3) Cardiomyopathy. Current Visit: Yes Status: Acute. (4) chronic systolic heart failure with reduced ejection fraction. Current Visit: Yes Status: chronic. (5) Acute chest pain, likely from PNA. Current Visit: Yes Status: Acute. (6) Alcohol dependence. Current Visit: Yes Status: Acute. (7) COPD (chronic obstructive pulmonary disease). Current Visit: Yes Status: Acute. Qualifiers: COPD type: chronic bronchitis. (8) Chronic respiratory failure, now off oxygen. Current Visit: Yes Status: Chronic. (9) bilateral PNA. Current Visit: Yes Status: Acute. (10) Noncompliance. Current Visit: Yes Status: Acute. (11) Tobacco use disorder. Current Visit: Yes Status: chronic Time spent for discharge: 34 minutes Core Measure Documentation - Palliative Care Palliative Care/ Comfort Measures: Not Applicable - Core Measures Any of the following diagnoses?: none Exam - Physical Exam Narrative exam: GENERAL: well-developed -[place]ov[place] female lying on bed appeared to be in no discomfort. HEENT: Normocephalic. Atraumatic. No conjunctival congestion or icterus. Patient has moist mucous membranes. NECK: Supple. Trachea midline. CHEST/LUNGS: Clear to auscultated bilaterally, breathing nonlabored. No wheezes crackles or rhonchi. HEART/CARDIOVASCULAR: Regular in rate and rhythm. S1 and S2 positive. ABDOMEN: Abdomen is soft, nontender. Patient has normal bowel sounds. SKIN: There is no rash. Warm and dry. NEURO: No focal motor deficit. Follows command. MUSCULOSKELETAL: No joint effusion or tenderness. EXTRIMITY: No edema, no cyanosis or clubbing. PSYCH: Cooperative. - Constitutional Vitals: Temp Pulse Resp BP Pulse Ox 97.9 F 88 17 129/76 99 09/18/20 12:45 09/18/20 12:45 09/18/20 12:45 09/18/20 12:45 09/18/20 12:45 Plan Activity: advance as tolerated Weight Bearing Status: Weight Bear as Tolerated Diet: low fat, low salt Special Instructions: restrict fluid intake to (1.5L daily), record daily weights Durable Medical Equipment Needed Upon Discharge: Nebulizer Follow up with: YVONNE SIMON MD [Staff Physician] - 7 Days PRIMARY CARE, [Primary Care Provider] - 3-5 Days Prescriptions: Pravastatin Sodium [Pravastatin] 10 mg PO QHS #30 tablet carvediloL [Coreg] 6.25 mg PO BID #60 tablet Folic Acid [Folvite] 1 mg PO QDAY #30 tablet Aspirin EC [Halfprin EC] 81 mg PO QDAY #30 tablet. levoFLOXacin [Levaquin TAB] 750 mg PO Q24HR #5 tablet Albuterol Mdi (or & Nicu Only) [ProAir HFA Inhaler] 2 puff IH QID PRN #8.5 gram PRN Reason: Shortness Of Breath ALBUTEROL NEB's [Proventil 0.083% NEBS] 2.5 mg IH Q4HRT PRN #30 nebu PRN Reason: Shortness Of Breath lisinopriL [Zestril TAB] 2.5 mg PO QDAY #30 tablet
[2020-09-18] MEDS ORDERED: levoFLOXacin 750 MG TAB PO SCH (14:00)
[2020-09-18] MEDS ORDERED: LISINOPRIL 5 MG TAB PO SCH (14:00)
[2020-09-18] MEDS ORDERED: carvediloL 6.25 MG TAB PO SCH (14:00)
--- NOTE | 2020-09-21 17:41 | Electrocardiograph Report ---
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
== END 2020-09-18 15:32 | disposition home health service (06) ==
LOC: ED 10:35 → 4A 16:53
PROVIDERS: ADMIT Internal Medicine; ATTEND Internal Medicine
DX: J96.10 Chronic respiratory failure, unspecified whether with hypoxia or hypercapnia (principal); I11.0 Hypertensive heart disease with heart failure; I50.23 Acute on chronic systolic (congestive) heart failure; J44.9 Chronic obstructive pulmonary disease, unspecified; E78.5 Hyperlipidemia, unspecified; I42.9 Cardiomyopathy, unspecified; F17.213 Nicotine dependence, cigarettes, with withdrawal; F10.129 Alcohol abuse with intoxication, unspecified; Z91.19 Patient's noncompliance with other medical treatment and regimen; Z98.891 History of uterine scar from previous surgery; Z79.899 Other long term (current) drug therapy; Z98.890 Other specified postprocedural states; Z79.82 Long term (current) use of aspirin
CPT/HCPCS: 36415; 71046; 71275; 80048; 80053; 83880; 84484; 85025; 85379; 85610; 93005; 93306; 94640; 94644; 96374; 96375; 96376; 99285; 99406; G0378; J1940; J2930; Q9967

== ENCOUNTER 2020-11-03 15:29 | Emergency (ER) | payer MEDICAID ==
[2020-11-03 15:35] VITALS: BP 135/101
[2020-11-03] MEDS ORDERED: ASPIRIN 325 MG TAB PO ONE (15:41)
[2020-11-03 16:22] LABS: Basophils % (Auto) 0.7 % (0.0-1.8); Eosinophils # (Auto) 0.2 K/mm3 (0.0-0.4); Eosinophils % (Auto) 3.5 % (0.0-4.3); Hematocrit 37.7 % (30.3-42.9); Hemoglobin 12.3 gm/dl (10.1-14.3); Lymphocytes # (Auto) 1.8 K/mm3 (1.2-5.4); Lymphocytes % (Auto) 30.9 % (13.4-35.0); Mean Corpuscular HGB Conc 33 % (30-34); Mean Corpuscular Volume 95 fl (79-97); Monocytes # (Auto) 0.5 K/mm3 (0.0-0.8); Monocytes % (Auto) 8.5 % (0.0-7.3); Platelet Count 189 K/mm3 (140-440); Red Blood Count 3.95 M/mm3 (3.65-5.03); Red Cell Distribution Width 13.7 % (13.2-15.2)
--- NOTE | 2020-11-03 16:31 | XRay Report ---
CHEST 2 VIEWS INDICATION / CLINICAL INFORMATION: CP WITH SOB. COMPARISON: 09/17/2020. FINDINGS: SUPPORT DEVICES: None. HEART / MEDIASTINUM: No significant abnormality. LUNGS / PLEURA: Chronic appearing interstitial opacities are somewhat less prominent on today's exami nation compared with reference. No focal consolidation. No pneumothorax. ADDITIONAL FINDINGS: No significant additional findings. IMPRESSION: Chronic interstitial opacities bilaterally, less prominent compared to reference exam, without acute cardiopulmonary abnormality identified. Signer Name: Sukhdeep Patel MD Signed: 11/03/2020 4:27 PM Workstation Name: [id number]
[2020-11-03 16:45] LABS: Alanine Aminotransferase 24 units/L (7-56); BUN/Creatinine Ratio 18; Blood Urea Nitrogen 11 mg/dL (7-17); Hemolysis Index 13
--- NOTE | 2020-11-03 17:07 | Event Note ---
ED Screening Note Date of service: 11/03/20 Time: 17:06 ED Screening Note: Pt complains of chest tightness and SOB x last night hx of COPD and CHF admitted 09/17/20 for similar This initial assessment/diagnostic orders/clinical plan/treatment(s) is/are subject to change based on patients health status, clinical progression and re- assessment by fellow clinical providers in the ED. Further treatment and workup at subsequent clinical providers discretion. Patient/guardian urged not to elope from the ED as their condition may be serious if not clinically assessed and managed. Initial orders include: labs CXR ekg
--- NOTE | 2020-11-03 22:18 | Emergency Department Report ---
ED Shortness of Breath HPI - General Chief Complaint: Chest Pain Stated Complaint: TIGHTENING IN CHEST Source: patient Mode of arrival: Ambulatory Limitations: No Limitations - History of Present Illness Initial Comments: Chief complaint: "Shortness of breath, chest tight for the last 2 nights, I think I need some prednisone." HPI: This is a 60-year-old female with history of cardiomyopathy, combined diastolic/systolic heart failure, hypertension, hyperlipidemia, COPD, emphysema, tobacco dependence, alcohol dependence who presents with chest tightness and shortness of breath at night. She has had productive cough and wheezing. She uses albuterol nebulizer therapy. She no longer has access his medication. [facility] is not providing any relief. She denies fever, sore throat, headache, nausea, new leg swelling. Mrs. Rock was recently admitted to this hospital last month. She had extensive work-up including CT angio chest, cardiology consultation echocardiogram According to EMR echocardiogram performed September 17, 2020, ejection fraction 30 to 35% with severe diastolic dysfunction MD Complaint: shortness of breath, cough, chest pain -: Gradual, During the night, Last night (During the last 2 nights) Severity: moderate Consistency: now resolved Improves With: upright position Known History Of: COPD, congestive heart failure Context: recent illness Associated Symptoms: denies other symptoms - Related Data Previous Rx's Medication Instructions Recorded Last Taken Type ALBUTEROL NEB's [Proventil 0.083% 2.5 mg IH Q4HRT PRN #30 nebu 09/18/20 Unknown Rx NEBS] Albuterol Mdi (or & Nicu Only) 2 puff IH QID PRN #8.5 gram 09/18/20 Unknown Rx [ProAir HFA Inhaler] Aspirin EC [Halfprin EC] 81 mg PO QDAY #30 tablet. 09/18/20 Unknown Rx Folic Acid [Folvite] 1 mg PO QDAY #30 tablet 09/18/20 Unknown Rx Pravastatin Sodium [Pravastatin] 10 mg PO QHS #30 tablet 09/18/20 Unknown Rx carvediloL [Coreg] 6.25 mg PO BID #60 tablet 09/18/20 Unknown Rx levoFLOXacin [Levaquin TAB] 750 mg PO Q24HR #5 tablet 09/18/20 Unknown Rx lisinopriL [Zestril TAB] 2.5 mg PO QDAY #30 tablet 09/18/20 Unknown Rx ALBUTEROL NEB's [Proventil 0.083% 2.5 mg IH TID PRN #1 box 11/03/20 Unknown Rx NEBS] DOXYCYCLINE Hyclate [Vibramycin 100 mg PO Q12HR 7 Days #14 capsule 11/03/20 Unknown Rx CAP] Prednisone [predniSONE 10 mg 10 mg PO .TAPER #1 tab.ds.pk 11/03/20 Unknown Rx (6-Day Pack, 21 Tabs)] Allergies Allergy/AdvReac Type Severity Reaction Status Date / Time No Known Allergies Allergy Verified 11/03/20 15:31 ED Review of Systems ROS: Stated complaint: TIGHTENING IN CHEST Other details as noted in HPI Comment: All other systems reviewed and negative Constitutional: denies: fever, malaise Respiratory: cough, shortness of breath, wheezing Cardiovascular: chest pain Gastrointestinal: denies: abdominal pain, nausea, vomiting ED Past Medical Hx - Past Medical History Previous Medical History?: Yes Hx Congestive Heart Failure: Yes Hx Asthma: No Hx COPD: Yes Additional medical history: RAPID HEART BEAT/ EMPHYSEMA - Surgical History Past Surgical History?: Yes Additional Surgical History: RIGHT BREST/ C SECTION - Family History Family history: hypertension - Social History Smoking Status: Current Some Day Smoker Substance Use Type: Alcohol - Medications Home Medications: Home Medications Medication Instructions Recorded Confirmed Last Taken Type ALBUTEROL NEB's [Proventil 0.083% 2.5 mg IH Q4HRT PRN #30 nebu 09/18/20 Unknown Rx NEBS] Albuterol Mdi (or & Nicu Only) 2 puff IH QID PRN #8.5 gram 09/18/20 Unknown Rx [ProAir HFA Inhaler] Aspirin EC [Halfprin EC] 81 mg PO QDAY #30 tablet. 09/18/20 Unknown Rx Folic Acid [Folvite] 1 mg PO QDAY #30 tablet 09/18/20 Unknown Rx Pravastatin Sodium [Pravastatin] 10 mg PO QHS #30 tablet 09/18/20 Unknown Rx carvediloL [Coreg] 6.25 mg PO BID #60 tablet 09/18/20 Unknown Rx levoFLOXacin [Levaquin TAB] 750 mg PO Q24HR #5 tablet 09/18/20 Unknown Rx lisinopriL [Zestril TAB] 2.5 mg PO QDAY #30 tablet 09/18/20 Unknown Rx ALBUTEROL NEB's [Proventil 0.083% 2.5 mg IH TID PRN #1 box 11/03/20 Unknown Rx NEBS] DOXYCYCLINE Hyclate [Vibramycin 100 mg PO Q12HR 7 Days #14 capsule 11/03/20 Unknown Rx CAP] Prednisone [predniSONE 10 mg 10 mg PO .TAPER #1 tab.ds.pk 11/03/20 Unknown Rx (6-Day Pack, 21 Tabs)] ED Physical Exam - General Limitations: No Limitations General appearance: alert, in no apparent distress, other (Steady normal gait, appears comfortable, talkative, speaks full word sentences) - Head Head exam: Present: atraumatic, normocephalic - Eye Eye exam: Present: normal appearance - ENT ENT exam: Present: mucous membranes moist - Neck Neck exam: Present: normal inspection, full ROM - Respiratory Respiratory exam: Present: wheezes, other (Expiratory wheezing). Absent: respiratory distress, rales, rhonchi, accessory muscle use, decreased breath sounds - Cardiovascular Cardiovascular Exam: Present: regular rate, normal rhythm, normal heart sounds. Absent: systolic murmur, diastolic murmur, rubs, gallop - GI/Abdominal GI/Abdominal exam: Present: soft, normal bowel sounds. Absent: distended, tenderness, guarding, rebound - Extremities Exam Extremities exam: Present: normal inspection - Neurological Exam Neurological exam: Present: alert, oriented X3 - Psychiatric Psychiatric exam: Present: normal affect, normal mood - Skin Skin exam: Present: warm, dry, intact, normal color. Absent: rash ED Course Vital Signs 11/03/20 15:34 Temperature 97.9 F Pulse Rate 67 Respiratory 20 Rate Blood Pressure 135/101 O2 Sat by Pulse 98 Oximetry ED Medical Decision Making - Lab Data Result diagrams: 11/03/20 15:56 11/03/20 15:56 Laboratory Results - last 24 hr 11/03/20 11/03/20 11/03/20 15:56 15:56 18:32 WBC 5.8 RBC 3.95 Hgb 12.3 Hct 37.7 MCV 95 MCH 31 MCHC 33 RDW 13.7 Plt Count 189 Lymph % (Auto) 30.9 [place] % (Auto) 8.5 H Eos % (Auto) 3.5 Baso % (Auto) 0.7 Lymph # (Auto) 1.8 [place] # (Auto) 0.5 Eos # (Auto) 0.2 Baso # (Auto) 0.0 Seg Neutrophils % 56.4 Seg Neutrophils # 3.3 Sodium 139 Potassium 3.9 Chloride 104.5 Carbon Dioxide 24 Anion Gap 14 BUN 11 Creatinine 0.6 Estimated GFR > 60 BUN/Creatinine Ratio 18 Glucose 93 Calcium 9.0 Total Bilirubin 0.70 AST 30 ALT 24 Alkaline Phosphatase 78 Troponin T < 0.010 < 0.010 NT-Pro-B Natriuret Pep 2951 H Total Protein 6.7 Albumin 4.0 Albumin/Globulin Ratio 1.5 11/03/20 21:28 WBC RBC Hgb Hct MCV MCH MCHC RDW Plt Count Lymph % (Auto) [place] % (Auto) Eos % (Auto) Baso % (Auto) Lymph # (Auto) [place] # (Auto) Eos # (Auto) Baso # (Auto) Seg Neutrophils % Seg Neutrophils # Sodium Potassium Chloride Carbon Dioxide Anion Gap BUN Creatinine Estimated GFR BUN/Creatinine Ratio Glucose Calcium Total Bilirubin AST ALT Alkaline Phosphatase Troponin T < 0.010 NT-Pro-B Natriuret Pep Total Protein Albumin Albumin/Globulin Ratio - EKG Data -: EKG Interpreted by Me EKG shows normal: sinus rhythm, axis Rate: normal - EKG Data Interpretation: nonspecific ST-T wave gio 11/03/20 22:21 EKG obtained 1539 EKG interpreted by ok Rate 60 bpm normal axis normal intervals no ST elevation nonspecific T wave pattern diffuse T wave inversion LVH with repolarization abnormality - Radiology Data Radiology results: report reviewed Patient Name: DANIEL CASAS Gender: Female Date of : 1960 Referring Provider: EDSON, ED Organization: [facility] Accession Number: [id number] Requested Date: November 03, 2020 15:41 Report Status: Final Requested Procedure: 1 Procedure Description: XR chest routine 2V Modality: XR Findings Reporting MD: Sukhdeep Patel Dictation Time: November 03, 2020 15:27 High Speed Printer Operator: Not available Photogrammetrist Date: CHEST 2 VIEWS INDICATION / CLINICAL INFORMATION: CP WITH SOB. COMPARISON: 09/17/2020. FINDINGS: SUPPORT DEVICES: None. HEART / MEDIASTINUM: No significant abnormality. LUNGS / PLEURA: Chronic appearing interstitial opacities are somewhat less prominent on today's examination compared with reference. No focal consolidation. No pneumothorax. ADDITIONAL FINDINGS: No significant additional findings. IMPRESSION: Chronic interstitial opacities bilaterally, less prominent compared to reference exam, without acute cardiopulmonary abnormality identified. Signer Name: Sukhdeep Patel MD Signed: 11/03/2020 3:27 PM Workstation Name: [email or web address] - Medical Decision Making COPD exacerbation: Patient has normal oxygen saturation without respiratory distress. I have prescribed doxycycline, albuterol nebulizer solution, prednisone taper. No indication of pneumonia or pulmonary edema. Chest radiograph slightly improved from September 2020. Patient has chronic scarring Seen on radiographs. No indication of acute coronary syndrome, pulmonary embolism or acute heart failure. Patient given referral to internal medicine physician. Also ovi crowell to follow-up with hog trader. Strongly recommended smoking cessation. Critical care attestation.: If time is entered above; I have spent that time in minutes in the direct care of this critically ill patient, excluding procedure time. ED Disposition Clinical Impression: COPD exacerbation Disposition: HOME / SELF CARE / HOMELESS Is pt being admited?: No Does the pt Need Aspirin: No Condition: Stable Instructions: Steps to Quit Smoking, [id number], Chronic Obstructive Pulmonary Disease, [id number], Chronic Obstructive Pulmonary Disease (ED) Prescriptions: Prednisone [predniSONE 10 mg (6-Day Pack, 21 Tabs)] 10 mg PO .TAPER #1 tab.ds.pk ALBUTEROL NEB's [Proventil 0.083% NEBS] 2.5 mg IH TID PRN #1 box PRN Reason: Wheezing DOXYCYCLINE Hyclate [Vibramycin CAP] 100 mg PO Q12HR 7 Days #14 capsule Referrals: SHIRIN BARNETT MD [Staff Physician] - 3-5 Days YVONNE SIMON MD [Staff Physician] - 3-5 Days
--- NOTE | 2020-11-04 11:27 | Electrocardiograph Report ---
[facility] Test Date: 2020-11-03 Test Time: 15:39:12 Pat Name: DANIEL CASAS Department: Room: Gender: F Strategic Alliances Manager: KARLOS : 1960 Requested By: RUDOLPH SCHAEFER Order Number: [id number] Reading MD: Leoncio Gary Measurements Intervals [place] Rate: 62 P: -9 CT: 180 QRS: 44 QRSD: 104 T: -85 QT: 448 QTc: 454 Interpretive Statements Sinus rhythm Probable LVH with secondary repol abnrm Compared to ECG 09/18/2020 07:52:11 Sinus arrhythmia no longer present Atrial abnormality no longer present ST (T wave) deviation no longer present Electronically Signed On 11-04-2020 11:27:03 EDT by Leoncio Gary
== END 2020-11-03 22:23 | disposition home or self-care (01) ==
LOC: ED 15:29
DX: J44.1 Chronic obstructive pulmonary disease with (acute) exacerbation (principal); I50.9 Heart failure, unspecified; Z98.890 Other specified postprocedural states; F17.200 Nicotine dependence, unspecified, uncomplicated
CPT/HCPCS: 36415; 71046; 80053; 83880; 84484; 85025; 93005; 99283

== ENCOUNTER 2020-12-30 17:39 | Emergency (ER) | payer MEDICAID ==
[2020-12-30] MEDS ORDERED: KETOROLAC 60 MG/2 ML INJ IM ONE (18:27)
--- NOTE | 2020-12-30 18:35 | Emergency Department Report ---
ED Back Pain/Injury HPI - General Chief Complaint: Back Pain/Injury Stated Complaint: BACK PAIN Time Seen by Provider: 12/30/20 18:17 Source: patient Limitations: No Limitations - History of Present Illness Initial Comments: Patient is a 60-year-old female presents emergency room with complaints of exacerbation of her chronic back pain. She states over the last few days she law s had some discomfort in her back. She states that she believes it is due to the change in weather. She states that she has chronic back pain from a slip and fall several years ago. She denies any previous surgeries on her back. She denies any acute fall or injury or trauma. She denies any fever, nausea, vomiting, diarrhea, urinary symptoms, numbness, weakness, bowel or bladder incontinence, chest pain, shortness of breath. Past medical history of CHF, tachycardia, COPD. No allergies to medications. She states she is currently seeing her primary care doctor for this chronic back pain and they ordered for outpatient x-rays. She is not currently seeing a retail merchandising specialist. she denies any hx of renal disease. - Related Data Previous Rx's Medication Instructions Recorded Last Taken Type ALBUTEROL NEB's [Proventil 0.083% 2.5 mg IH Q4HRT PRN #30 nebu 09/18/20 Unknown Rx NEBS] Albuterol Mdi (or & Nicu Only) 2 puff IH QID PRN #8.5 gram 09/18/20 Unknown Rx [ProAir HFA Inhaler] Aspirin EC [Halfprin EC] 81 mg PO QDAY #30 tablet. 09/18/20 Unknown Rx Folic Acid [Folvite] 1 mg PO QDAY #30 tablet 09/18/20 Unknown Rx Pravastatin Sodium [Pravastatin] 10 mg PO QHS #30 tablet 09/18/20 Unknown Rx carvediloL [Coreg] 6.25 mg PO BID #60 tablet 09/18/20 Unknown Rx levoFLOXacin [Levaquin TAB] 750 mg PO Q24HR #5 tablet 09/18/20 Unknown Rx lisinopriL [Zestril TAB] 2.5 mg PO QDAY #30 tablet 09/18/20 Unknown Rx ALBUTEROL NEB's [Proventil 0.083% 2.5 mg IH TID PRN #1 box 11/03/20 Unknown Rx NEBS] DOXYCYCLINE Hyclate [Vibramycin 100 mg PO Q12HR 7 Days #14 capsule 11/03/20 Unknown Rx CAP] Prednisone [predniSONE 10 mg 10 mg PO .TAPER #1 tab.ds.pk 11/03/20 Unknown Rx (6-Day Pack, 21 Tabs)] Meloxicam [Mobic] 7.5 mg PO QDAY #10 tablet 12/30/20 Unknown Rx Menthol/Camphor [[place] 1 applicatio TP BID #18 oint...g. 12/30/20 Unknown Rx Ointment] methOCARBAMOL [Robaxin TAB] 500 mg PO BID PRN 7 Days #14 tab 12/30/20 Unknown Rx Allergies Allergy/AdvReac Type Severity Reaction Status Date / Time No Known Allergies Allergy Verified 11/03/20 15:31 ED Review of Systems ROS: Stated complaint: BACK PAIN Other details as noted in HPI Comment: All other systems reviewed and negative ED Past Medical Hx - Past Medical History Hx Congestive Heart Failure: Yes Hx Asthma: No Hx COPD: Yes Additional medical history: RAPID HEART BEAT/ EMPHYSEMA - Surgical History Additional Surgical History: RIGHT BREST/ C SECTION - Social History Smoking Status: Light Tobacco Smoker Substance Use Type: Alcohol - Medications Home Medications: Home Medications Medication Instructions Recorded Confirmed Last Taken Type ALBUTEROL NEB's [Proventil 0.083% 2.5 mg IH Q4HRT PRN #30 nebu 09/18/20 Unknown Rx NEBS] Albuterol Mdi (or & Nicu Only) 2 puff IH QID PRN #8.5 gram 09/18/20 Unknown Rx [ProAir HFA Inhaler] Aspirin EC [Halfprin EC] 81 mg PO QDAY #30 tablet. 09/18/20 Unknown Rx Folic Acid [Folvite] 1 mg PO QDAY #30 tablet 09/18/20 Unknown Rx Pravastatin Sodium [Pravastatin] 10 mg PO QHS #30 tablet 09/18/20 Unknown Rx carvediloL [Coreg] 6.25 mg PO BID #60 tablet 09/18/20 Unknown Rx levoFLOXacin [Levaquin TAB] 750 mg PO Q24HR #5 tablet 09/18/20 Unknown Rx lisinopriL [Zestril TAB] 2.5 mg PO QDAY #30 tablet 09/18/20 Unknown Rx ALBUTEROL NEB's [Proventil 0.083% 2.5 mg IH TID PRN #1 box 11/03/20 Unknown Rx NEBS] DOXYCYCLINE Hyclate [Vibramycin 100 mg PO Q12HR 7 Days #14 capsule 11/03/20 Unknown Rx CAP] Prednisone [predniSONE 10 mg 10 mg PO .TAPER #1 tab.ds.pk 11/03/20 Unknown Rx (6-Day Pack, 21 Tabs)] Meloxicam [Mobic] 7.5 mg PO QDAY #10 tablet 12/30/20 Unknown Rx Menthol/Camphor [[place] 1 applicatio TP BID #18 oint...g. 12/30/20 Unknown Rx Ointment] methOCARBAMOL [Robaxin TAB] 500 mg PO BID PRN 7 Days #14 tab 12/30/20 Unknown Rx ED Physical Exam - General Limitations: No Limitations General appearance: alert, in no apparent distress - Head Head exam: Present: atraumatic, normocephalic - Eye Eye exam: Present: normal appearance - ENT ENT exam: Present: mucous membranes moist - Neck Neck exam: Present: normal inspection, full ROM. Absent: tenderness, meningismus - Respiratory Respiratory exam: Present: normal lung sounds bilaterally. Absent: respiratory distress, wheezes, rales, rhonchi, stridor, chest wall tenderness, accessory muscle use, decreased breath sounds, prolonged expiratory - Cardiovascular Cardiovascular Exam: Present: regular rate, normal rhythm, normal heart sounds. Absent: systolic murmur, diastolic murmur, rubs, gallop - Back Exam Back exam: Present: normal inspection, full ROM, paraspinal tenderness (bilateral lumbar paraspinal ttp, no midline C-spine, T-spine or L-spine ttp, no step offs, no deformity, no edema, no skin changes ). Absent: vertebral tenderness - Neurological Exam Neurological exam: Present: alert, oriented X3 - Psychiatric Psychiatric exam: Present: normal affect, normal mood - Skin Skin exam: Present: warm, dry, intact ED Course Vital Signs 12/30/20 12/30/20 18:13 18:57 Temperature 98.1 F 98.9 F Pulse Rate 88 99 H Respiratory 18 18 Rate Blood Pressure 160/84 151/83 O2 Sat by Pulse 98 94 Oximetry ED Medical Decision Making - Medical Decision Making Patient is a 60-year-old female presents emergency room with complaints of exacerbation of her chronic back pain. She states over the last few days she has had some discomfort in her back. She states that she believes it is due to the change in weather. She states that she has chronic back pain from a slip and fall several years ago. She denies any previous surgeries on her back. She denies any acute fall or injury or trauma. She denies any fever, nausea, vomiting, diarrhea, urinary symptoms, numbness, weakness, bowel or bladder incontinence, chest pain, shortness of breath. Past medical history of CHF, tachycardia, COPD. No allergies to medications. She states she is currently s eeing her primary care doctor for this chronic back pain and they ordered for outpatient x-rays. She is not currently seeing a retail merchandising specialist. she denies any hx of renal disease. Vitals are stable. On exam:bilateral lumbar paraspinal ttp, no midline C-spine, T-spine or L-spine ttp, no step offs, no deformity, no edema, no skin changes, no focal neuro deficit, ambulatory without difficulty. Patient does not have any red flag warning signs of back pain, no trauma, no unexplained weight loss, no fever, no IV drug use, no history of cancer, no neuro deficits. she has not had any changes in her chronic back pain. Patient given Toradol IM on the emergency department with improvement of her symptoms. discussed the importance of primary care and neurosurgery follow-up. Advised patient Please use medication as prescribed. Follow-up with a primary care doctor. Follow-up with a retail merchandising specialist. Return to emergency room for any new or worsening symptoms. Critical care attestation.: If time is entered above; I have spent that time in minutes in the direct care of this critically ill patient, excluding procedure time. ED Disposition Clinical Impression: Back pain Qualifiers: Back pain location: low back pain Chronicity: chronic Back pain laterality: bilateral Sciatica presence: without sciatica Qualified Code(s): M54.50 - Low back pain, unspecified Disposition: 01 HOME / SELF CARE / HOMELESS Is pt being admited?: No Does the pt Need Aspirin: No Condition: Stable Instructions: Chronic Back Pain, [id number]-[id number] Additional Instructions: Please use medication as prescribed. Follow-up with a primary care doctor. Follow-up with a retail merchandising specialist. Return to emergency room for any new or worsening symptoms. Prescriptions: Meloxicam [Mobic] 7.5 mg PO QDAY #10 tablet methOCARBAMOL [Robaxin TAB] 500 mg PO BID PRN 7 Days #14 tab PRN Reason: muscle spasm/pain Menthol/Camphor [[place] Ointment] 1 applicatio TP BID #18 oint...g. Referrals: your, primary care doctor [Other] - 2-3 Days DIMITRI DA SILVA II, MD [Staff Physician] - 2-3 Days Time of Disposition: 18:33 Print Language: [place] CITIZEN
[2020-12-30 19:00] VITALS: BP 151/83
== END 2020-12-30 18:57 | disposition home or self-care (01) ==
LOC: ED 17:39
DX: M54.50 Low back pain, unspecified (principal); F17.200 Nicotine dependence, unspecified, uncomplicated; F10.20 Alcohol dependence, uncomplicated
CPT/HCPCS: 96372; 99282; J1885

== ENCOUNTER 2021-01-02 12:59 | Emergency (ER) | payer MEDICAID ==
[2021-01-02 13:14] VITALS: BP 142/87
--- NOTE | 2021-01-02 15:48 | Emergency Department Report ---
ED Shortness of Breath HPI - General Chief Complaint: Dyspnea/Respdistress Stated Complaint: SHANNAN Time Seen by Provider: 01/02/21 14:35 Source: patient Mode of arrival: Stretcher Limitations: No Limitations - History of Present Illness Initial Comments: The patient was evaluated in the emergency department for symptoms described in the history of present illness. He/she was evaluated in the context of the global COVID-19 pandemic, which necessitated consideration that the patient might be at risk for infection with the virus that causes COVID-19. I nstitutional protocols and algorithms that pertain to the evaluation of patients at risk for COVID-19 are in a state of rapid change based on information released by regulatory bodies including the CDC and federal and state organizations. These policies and algorithms were followed during the patient's care in the emergency department. Please note that these policies, procedures and recommendations changed on a rapid basis. 60-year-old -[place] female who reports a past medical history of CHF, rapid heart rate, COPD asthma and emphysema presents to the emergency room complaining of shortness of breath and epigastric discomfort. Patient states that she drinks 2 beers daily, has started back smoking her new ports. She states that she was hospitalized in the remote past in states that they were told her she needed oxygen. Patient states that her her insurance will only cover her nebulizer machine. She states that she never got her oxygen. Patient is unvaccinated and has not been tested for Covid in over a year. Patient denies any cough no fever no chills no sore throat no nasal congestion. She does not have a primary care provider locally and was last followed by Dr. Soto in [place]. Patient states that her symptoms improve after having oxygen while she was on EMS vehicle. MD Complaint: shortness of breath Onset/Timin -: days(s) Pain Scale: 0 Consistency: intermittent Improves With: oxygen Worsens With: nothing Known History Of: COPD, asthma, congestive heart failure Context: smoke/fume exposure (She has started smoking again) Treatments Prior to Arrival: other (Albuterol and treatment) - Related Data Home Oxygen Therapy: No Previous Rx's Medication Instructions Recorded Last Taken Type ALBUTEROL NEB's [Proventil 0.083% 2.5 mg IH Q4HRT PRN #30 nebu 09/18/20 Unknown Rx NEBS] Albuterol Mdi (or & Nicu Only) 2 puff IH QID PRN #8.5 gram 09/18/20 Unknown Rx [ProAir HFA Inhaler] Aspirin EC [Halfprin EC] 81 mg PO QDAY #30 tablet. 09/18/20 Unknown Rx Folic Acid [Folvite] 1 mg PO QDAY #30 tablet 09/18/20 Unknown Rx Pravastatin Sodium [Pravastatin] 10 mg PO QHS #30 tablet 09/18/20 Unknown Rx carvediloL [Coreg] 6.25 mg PO BID #60 tablet 09/18/20 Unknown Rx levoFLOXacin [Levaquin TAB] 750 mg PO Q24HR #5 tablet 09/18/20 Unknown Rx lisinopriL [Zestril TAB] 2.5 mg PO QDAY #30 tablet 09/18/20 Unknown Rx ALBUTEROL NEB's [Proventil 0.083% 2.5 mg IH TID PRN #1 box 11/03/20 Unknown Rx NEBS] DOXYCYCLINE Hyclate [Vibramycin 100 mg PO Q12HR 7 Days #14 capsule 11/03/20 Unknown Rx CAP] Prednisone [predniSONE 10 mg 10 mg PO .TAPER #1 tab.ds.pk 11/03/20 Unknown Rx (6-Day Pack, 21 Tabs)] Meloxicam [Mobic] 7.5 mg PO QDAY #10 tablet 12/30/20 Unknown Rx Menthol/Camphor [[place] 1 applicatio TP BID #18 oint...g. 12/30/20 Unknown Rx Ointment] methOCARBAMOL [Robaxin TAB] 500 mg PO BID PRN 7 Days #14 tab 12/30/20 Unknown Rx Azithromycin [Zithromax Z-VIRGILIO] 250 mg PO DAILY #6 tab 01/02/21 Unknown Rx Allergies Allergy/AdvReac Type Severity Reaction Status Date / Time No Known Allergies Allergy Verified 01/02/21 13:14 ED Review of Systems ROS: Stated complaint: SHANNAN Other details as noted in HPI ED Past Medical Hx - Past Medical History Hx Congestive Heart Failure: Yes Hx Asthma: No Hx COPD: Yes Additional medical history: RAPID HEART BEAT/ EMPHYSEMA - Surgical History Additional Surgical History: RIGHT BREST/ C SECTION - Social History Smoking Status: Light Tobacco Smoker Substance Use Type: Alcohol - Medications Home Medications: Home Medications Medication Instructions Recorded Confirmed Last Taken Type ALBUTEROL NEB's [Proventil 0.083% 2.5 mg IH Q4HRT PRN #30 nebu 09/18/20 Unknown Rx NEBS] Albuterol Mdi (or & Nicu Only) 2 puff IH QID PRN #8.5 gram 09/18/20 Unknown Rx [ProAir HFA Inhaler] Aspirin EC [Halfprin EC] 81 mg PO QDAY #30 tablet.dr 09/18/20 Unknown Rx Folic Acid [Folvite] 1 mg PO QDAY #30 tablet 09/18/20 Unknown Rx Pravastatin Sodium [Pravastatin] 10 mg PO QHS #30 tablet 09/18/20 Unknown Rx carvediloL [Coreg] 6.25 mg PO BID #60 tablet 09/18/20 Unknown Rx levoFLOXacin [Levaquin TAB] 750 mg PO Q24HR #5 tablet 09/18/20 Unknown Rx lisinopriL [Zestril TAB] 2.5 mg PO QDAY #30 tablet 09/18/20 Unknown Rx ALBUTEROL NEB's [Proventil 0.083% 2.5 mg IH TID PRN #1 box 11/03/20 Unknown Rx NEBS] DOXYCYCLINE Hyclate [Vibramycin 100 mg PO Q12HR 7 Days #14 capsule 11/03/20 Unknown Rx CAP] Prednisone [predniSONE 10 mg 10 mg PO .TAPER #1 tab.ds.pk 11/03/20 Unknown Rx (6-Day Pack, 21 Tabs)] Meloxicam [Mobic] 7.5 mg PO QDAY #10 tablet 12/30/20 Unknown Rx Menthol/Camphor [[place] 1 applicatio TP BID #18 oint...g. 12/30/20 Unknown Rx Ointment] methOCARBAMOL [Robaxin TAB] 500 mg PO BID PRN 7 Days #14 tab 12/30/20 Unknown Rx Azithromycin [Zithromax Z-VIRGILIO] 250 mg PO DAILY #6 tab 01/02/21 Unknown Rx ED Physical Exam - General Limitations: No Limitations General appearance: alert, in no apparent distress - Head Head exam: Present: atraumatic, normocephalic - Eye Eye exam: Present: normal appearance - ENT ENT exam: Present: mucous membranes moist - Neck Neck exam: Present: normal inspection - Respiratory Respiratory exam: Present: normal lung sounds bilaterally. Absent: respiratory distress - Cardiovascular Cardiovascular Exam: Present: regular rate, normal rhythm. Absent: systolic murmur, diastolic murmur, rubs, gallop - GI/Abdominal GI/Abdominal exam: Present: soft, normal bowel sounds - Extremities Exam Extremities exam: Present: normal inspection - Back Exam Back exam: Present: normal inspection - Neurological Exam Neurological exam: Present: alert, oriented X3 - Psychiatric Psychiatric exam: Present: normal affect, normal mood - Skin Skin exam: Present: warm, dry, intact, normal color. Absent: rash ED Course Vital Signs 01/02/21 13:11 Temperature 99.3 F Pulse Rate 82 Respiratory 18 Rate Blood Pressure 142/87 [Left] O2 Sat by Pulse 98 Oximetry ED Medical Decision Making - Radiology Data Radiology results: report reviewed Study Comments [facility] [address] [place] [address] XRay Report Signed Patient: DANIEL CASAS MR#: [id number] : 1960 Acct:[id number] Age/Sex: 60 / F ADM Date: 01/02/21 Loc: ED Attending Dr: Ordering Physician: CHEVY SANCHEZ Date of Service: 01/02/21 Procedure(s): XR chest routine 2V Accession Number(s): [id number] cc: CHEVY SANCHEZ Fluoro Time In Minutes: CHEST 2 VIEWS INDICATION / CLINICAL INFORMATION: sob STUDY TIME: 1451 COMPARISON: 11/03/2020 FINDINGS: SUPPORT DEVICES: None. HEART / MEDIASTINUM: Mild cardiomegaly is again seen LUNGS / PLEURA: Prominent bilateral increased interstitial markings are again seen. I do not clearly see superimposed pneumonitis. Mild bibasilar atelectatic changes are seen. No pleural effusions are obvious. No pneumothorax. ADDITIONAL FINDINGS: No significant additional findings. Signer Name: Poli Enciso MD Signed: 01/02/2021 4:36 PM Workstation Name: [id number] Transcribed By: AUDELIA Dictated By: Poli Enciso MD Electronically Authenticated By: Poli Enciso MD Signed Date/Time: 01/02/211635 DD/ 34 TD/TT: - Medical Decision Making 60-year-old -[place] female who reports a past medical history of CHF, rapid heart rate, COPD asthma and emphysema presents to the emergency room complaining of shortness of breath and epigastric discomfort. Patient states that she drinks 2 beers daily, has started back smoking her new ports. She states that she was hospitalized in the remote past in states that they were told her she needed oxygen. Patient states that her her insurance will only cover her nebulizer machine. She states that she never got her oxygen. Patient is unvaccinated and has not been tested for Covid in over a year. Patient denies any cough no fever no chills no sore throat no nasal congestion. She does not have a primary care provider locally and was last followed by Dr. Soto in [place]. Patient states that her symptoms improve after having oxygen while she was on EMS vehicle. Chest x-ray ordered. All vital signs within normal limits. Patient states of symptoms have resolved since having oxygen. X-ray is concerning for bibasilar atelectasis no concern for pneumonitis I will place patient on azithromycin and have her follow-up with a community provider. Critical care attestation.: If time is entered above; I have spent that time in minutes in the direct care of this critically ill patient, excluding procedure time. ED Disposition Clinical Impression: Upper respiratory infection Disposition: 01 HOME / SELF CARE / HOMELESS Is pt being admited?: No Does the pt Need Aspirin: No Condition: Stable Instructions: Upper Respiratory Infection, Adult, [id number] Additional Instructions: X-ray concern for bibasilar atelectasis. Which I recommend completing an antibiotic and following up with the sanitation associate and a primary care provider. Prescriptions: Azithromycin [Zithromax Z-VIRGILIO] 250 mg PO DAILY #6 tab Referrals: ANDREA PAVON MD [Primary Care Provider] - 3-5 Days SHIRIN BARNETT MD [Staff Physician] - 3-5 Days LING GEORGES MD [Staff Physician] - 3-5 Days SOCORRO PITTMAN MD [Staff Physician] - 3-5 Days Time of Disposition: 17:09
--- NOTE | 2021-01-02 16:40 | XRay Report ---
CHEST 2 VIEWS INDICATION / CLINICAL INFORMATION: sob STUDY TIME: 1451 COMPARISON: 11/03/2020 FINDINGS: SUPPORT DEVICES: None. HEART / MEDIASTINUM: Mild cardiomegaly is again seen LUNGS / PLEURA: Prominent bilateral increased interstitial markings are again seen. I do not clearly see superimposed pneumonitis. Mild bibasilar atelectatic changes are seen. No pleural effusions are o bvious. No pneumothorax. ADDITIONAL FINDINGS: No significant additional findings. Signer Name: Poli Enciso MD Signed: 01/02/2021 4:36 PM Workstation Name: [id number]
== END 2021-01-02 18:00 | disposition home or self-care (01) ==
LOC: ED 12:59
DX: J06.9 Acute upper respiratory infection, unspecified (principal); I50.9 Heart failure, unspecified; J44.9 Chronic obstructive pulmonary disease, unspecified; R00.0 Tachycardia, unspecified; Z98.890 Other specified postprocedural states; F17.200 Nicotine dependence, unspecified, uncomplicated
CPT/HCPCS: 71046; 99283

== ENCOUNTER 2021-03-13 10:54 | Emergency (ER) | payer MEDICAID ==
[2021-03-13 11:00] VITALS: BP 143/66
== END 2021-03-14 02:03 | disposition left against medical advice (07) ==
LOC: ED 10:54
DX: M79.10 Myalgia, unspecified site (principal); Z53.21 Procedure and treatment not carried out due to patient leaving prior to being seen by health care provider

== ENCOUNTER 2021-04-03 10:30 | Emergency (ER) | payer MEDICAID ==
--- NOTE | 2021-04-03 10:47 | Emergency Department Report ---
ED CPR HPI - General Stated Complaint: CARDIAC ARREST Time Seen by Provider: 04/03/21 10:35 Source: EMS, old records reviewed Limitations: Other (cardiac arrest) - History of Present Illness Initial Comments: CC: cardiac arrest HPI: This is a 61 yo female with hx of cardiomyopathy, HTN, hyperlipidemia, COPD, tobacco use who presents in cardiac arrest. She was found unresponsive by male ear nose and throat specialist. She was last known well at 1 AM. She was ventilated through [facility] Airway by EMS. Asystole rhythmon arrival persistent from 30 minutes of ACLS resuscitation attempts. Patient received 3 doses of epinephrine via EMS. According to EMR, Ms. Burnett was prescribed a Life Vest 5 years ago. She stopped wearing the Life Vest. MD Complaint: found unresponsive Place: home Bystander CPR Performed: Yes (Male ear nose and throat specialist performed chest compressions) Initial Findings in the Field: unresponsive, other rhythm (asystole) ROSC in the Field: No Treatments Prior to Arrival: other airway device (Jeffry airway), epinephrine mgs # (3 doses of epinephrine) - Related Data Previous Rx's Medication Instructions Recorded Last Taken Type ALBUTEROL NEB's [Proventil 0.083% 2.5 mg IH Q4HRT PRN #30 nebu 09/18/20 Unknown Rx NEBS] Albuterol Mdi (or & Nicu Only) 2 puff IH QID PRN #8.5 gram 09/18/20 Unknown Rx [ProAir HFA Inhaler] Aspirin EC [Halfprin EC] 81 mg PO QDAY #30 tablet. 09/18/20 Unknown Rx Folic Acid [Folvite] 1 mg PO QDAY #30 tablet 09/18/20 Unknown Rx Pravastatin Sodium [Pravastatin] 10 mg PO QHS #30 tablet 09/18/20 Unknown Rx carvediloL [Coreg] 6.25 mg PO BID #60 tablet 09/18/20 Unknown Rx levoFLOXacin [Levaquin TAB] 750 mg PO Q24HR #5 tablet 09/18/20 Unknown Rx lisinopriL [Zestril TAB] 2.5 mg PO QDAY #30 tablet 09/18/20 Unknown Rx ALBUTEROL NEB's [Proventil 0.083% 2.5 mg IH TID PRN #1 box 11/03/20 Unknown Rx NEBS] DOXYCYCLINE Hyclate [Vibramycin 100 mg PO Q12HR 7 Days #14 capsule 11/03/20 Unknown Rx CAP] Prednisone [predniSONE 10 mg 10 mg PO .TAPER #1 tab.ds.pk 11/03/20 Unknown Rx (6-Day Pack, 21 Tabs)] Meloxicam [Mobic] 7.5 mg PO QDAY #10 tablet 12/30/20 Unknown Rx Menthol/Camphor [[place] 1 applicatio TP BID #18 oint...g. 12/30/20 Unknown Rx Ointment] methOCARBAMOL [Robaxin TAB] 500 mg PO BID PRN 7 Days #14 tab 12/30/20 Unknown Rx Azithromycin [Zithromax Z-VIRGILIO] 250 mg PO DAILY #6 tab 01/02/21 Unknown Rx Allergies Allergy/AdvReac Type Severity Reaction Status Date / Time No Known Allergies Allergy Verified 01/02/21 13:14 ED Review of Systems ROS: Stated complaint: CARDIAC ARREST Other details as noted in HPI Comment: Unobtainable due to pts medical conditions (Cardiac arrest) ED Past Medical Hx - Past Medical History Previous Medical History?: Yes Hx Congestive Heart Failure: Yes Hx Asthma: No Hx COPD: Yes Additional medical history: RAPID HEART BEAT/ EMPHYSEMA - Surgical History Past Surgical History?: Yes Additional Surgical History: RIGHT BREST/ C SECTION - Social History Smoking Status: Current Every Day Smoker Substance Use Type: Alcohol - Medications Home Medications: Home Medications Medication Instructions Recorded Confirmed Last Taken Type ALBUTEROL NEB's [Proventil 0.083% 2.5 mg IH Q4HRT PRN #30 nebu 09/18/20 Unknown Rx NEBS] Albuterol Mdi (or & Nicu Only) 2 puff IH QID PRN #8.5 gram 09/18/20 Unknown Rx [ProAir HFA Inhaler] Aspirin EC [Halfprin EC] 81 mg PO QDAY #30 tablet. 09/18/20 Unknown Rx Folic Acid [Folvite] 1 mg PO QDAY #30 tablet 09/18/20 Unknown Rx Pravastatin Sodium [Pravastatin] 10 mg PO QHS #30 tablet 09/18/20 Unknown Rx carvediloL [Coreg] 6.25 mg PO BID #60 tablet 09/18/20 Unknown Rx levoFLOXacin [Levaquin TAB] 750 mg PO Q24HR #5 tablet 09/18/20 Unknown Rx lisinopriL [Zestril TAB] 2.5 mg PO QDAY #30 tablet 09/18/20 Unknown Rx ALBUTEROL NEB's [Proventil 0.083% 2.5 mg IH TID PRN #1 box 11/03/20 Unknown Rx NEBS] DOXYCYCLINE Hyclate [Vibramycin 100 mg PO Q12HR 7 Days #14 capsule 11/03/20 Unknown Rx CAP] Prednisone [predniSONE 10 mg 10 mg PO .TAPER #1 tab.ds.pk 11/03/20 Unknown Rx (6-Day Pack, 21 Tabs)] Meloxicam [Mobic] 7.5 mg PO QDAY #10 tablet 12/30/20 Unknown Rx Menthol/Camphor [[place] 1 applicatio TP BID #18 oint...g. 12/30/20 Unknown Rx Ointment] methOCARBAMOL [Robaxin TAB] 500 mg PO BID PRN 7 Days #14 tab 12/30/20 Unknown Rx Azithromycin [Zithromax Z-VIRGILIO] 250 mg PO DAILY #6 tab 01/02/21 Unknown Rx ED Physical Exam - General Limitations: Other (Cardiac arrest) General appearance: other (Lifeless no response to pain) - Head Head exam: Present: atraumatic, normocephalic - Eye Eye exam: Present: other (Fixed dilated pupils) - ENT ENT exam: Present: other (Mucosa Jeffry airway in place) - Neck Neck exam: Present: normal inspection, other (Positive JVD) - Respiratory Respiratory exam: Present: rales, rhonchi, other (Equal breath sounds with ventilation) - Cardiovascular Cardiovascular Exam: Present: other (No palpable pulse no auscultated cardiac sounds) - GI/Abdominal GI/Abdominal exam: Present: soft. Absent: distended - Extremities Exam Extremities exam: Present: other (No traumatic deformity of the arms or legs no pedal edema) - Neurological Exam Neurological exam: Present: other (Lifeless no response to voice or pain) - Psychiatric Psychiatric exam: Present: other (Lifeless no response to voice or pain) - Skin Skin exam: Present: intact, other (Cool to touch) ED Medical Decision Making - Medical Decision Making This is a 61-year-old female with history of cardiomyopathy, hypertension, hyperlipidemia, COPD who presents in cardiac arrest. Patient received 30 minutes of ACLS resuscitation attempt via EMS. Asystole was confirmed on 3 leads in the emergency department. Time of 1030 I performed the notification of family members in person. Critical care attestation.: If time is entered above; I have spent that time in minutes in the direct care of this critically ill patient, excluding procedure time. ED Disposition Clinical Impression: due to cardiac arrest Disposition: 20 Is pt being admited?: No Does the pt Need Aspirin: No Condition: Stable Time of Disposition: 10:30
== END 2021-04-03 18:10 ==
LOC: ED 10:30
DX: I46.9 Cardiac arrest, cause unspecified (principal); I50.9 Heart failure, unspecified; J44.9 Chronic obstructive pulmonary disease, unspecified; R00.0 Tachycardia, unspecified; Z79.899 Other long term (current) drug therapy; Z98.890 Other specified postprocedural states
CPT/HCPCS: 92950; 99285